=== PATIENT | female | born 1995 ===

== ENCOUNTER 2020-02-15 01:36 | Inpatient (IN) ==
[2020-02-15] MEDS ORDERED: OXYTOCIN 30 UNITS/500 ML BAG IV PRN ×2 (01:55→03:53)
[2020-02-15] MEDS ORDERED: LACTATED RINGER'S 1,000 ML IV PRN (01:55)
[2020-02-15 02:32] LABS: Hematocrit (blood only) 35.9 % (37-47); Hemoglobin 11.6 g/dL (12.0-16.0); Mean Corpuscular Hemoglobin 25.6 pg (25-34); Mean Corpuscular Hgb Conc 32.3 g/dL (32-36); Mean Corpuscular Volume 79.2 fL (80-100); Mean Platelet Volume 11.3 fL (7.4-10.4); Platelet Count 251 K/uL (130-400); RDW Coefficient of Variation 14.2 % (11.5-14.5); RDW Standard Deviation 40.1 fL (36.4-46.3); Red Blood Count 4.53 M/uL (4.2-5.4); White Blood Count 14.34 K/uL (4.8-10.8)
[2020-02-15] MEDS ORDERED: ePHEDrine sulfate 50 MG/ML AMP ONE (02:32)
[2020-02-15] MEDS ORDERED: SODIUM CHLORIDE 0.9% INJ 10 ML VIAL ONE (02:32)
[2020-02-15] MEDS ORDERED: BUPIVACAINE 0.25% 30 ML VIAL ONE (02:32)
[2020-02-15] MEDS ORDERED: fentaNYL citrate 100 MCG/2 ML VIAL ONE (02:33)
[2020-02-15] MEDS ORDERED: fentaNYL 2MCG/ML ROPIVACAINE 1.25MG/ML 100 ML BAG EPI ONE (02:34)
--- NOTE | 2020-02-15 02:36 | History & Physical Report ---
Date of Service February 15, 2020 Assessment & Plan (1) : VSS fetus cat 1 labor - augment PRN, plan to recheck following epidural GBS neg Epidural PRN COVID neg Admission and Anticipated Discharge Date Admission Date: February 15, 2020 History of Present Illness Primary Care Provider: NO PCP 24 y/o G1 at 38 1/7 wga w/ FE 02/28/20 by LMP 05/24 reported c/w US presents w/ c/o ctx increasing in frequency and intensity. +FM and some bloody show, no gross LOF. Normally gets PNC at [facility] in [place], however, was scheduled for job here this weekend. 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 Normal pap in this . No hx STIs PNL (seen on pt's [facility] portal, paper records requested): O+, antibody neg RPR neg HepB SAg neg HepB SAb neg Hep C neg Rubella immune GBS neg GTT 61 TSH 0.82 UCx neg Reported normal anatomy at 20 wks, reportedly had normal growth 01/26 Allergies Allergy/AdvReac Type Severity Reaction Status Date / Time No Known Allergies Allergy Unverified 02/15/20 02:23 Patient History Medical History (Updated 02/15/20 @ 02:34 by Nargis Guzmán MD) Patient denies significant medical history Surgical History (Updated 02/15/20 @ 02:32 by Nargis Guzmán MD) No significant past surgical history Family History (Updated 02/15/20 @ 02:31 by Nargis Guzmán MD) Denies family history of Clotting disorder Social History Smoking Status: Never smoker Second Hand Exposure: No; Do You Dip or Chew Tobacco: No; Tobacco Cessation Education Requested by Patient: No Hx Alcohol Use: No Hx Substance Use: No 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 Beliefs That Will Affect Care: None marital status: Single Current Living Situation: Significant Other Other Information That Helps Us Care for You: No Feels Safe at Home: Yes Safety Concerns: Feels Safe At This Time Assistive Devices: None Physical Exam Constitutional: WD/WN, vitals as above no acute distress Respiratory: normal respiratory effort and + labored breathing (w/ ctx); no respiratory distress Genitourinary: OB Exam Abdomen: + vertex (confirmed by BSUS), + estimated weight (6-7) and + regular contractions (q4min) OB Exam Monitor T racing: + external FHT monitor used, + external uterine monitor used and + category I (145/mod/+accel/-decel) 6/100/0 w/ bulging bag by nursing Results & Data ([facility]) Vital Signs (Past 12 Hours) Vital Signs Temp Pulse Resp BP 02/15/20 01:43 98.2 F 86 20 122/69 Code Status & VTE Plan VTE Prophylaxis Plan VTE Prophylaxis will be ordered: Yes Coding Level of Care Code None Diagnoses Z34.90 CPT Codes Misx Procedure Codes - 63845 NST: 41060 NST ([id number])
[2020-02-15] MEDS ORDERED: LIDOCAINE HCL 1% 20 ML VIAL ONE (03:05)
[2020-02-15 03:21] LABS: Hepatitis B Surface Antigen Neg (Neg); Rubella IgG Antibody Immune (Immune)
--- NOTE | 2020-02-15 03:49 | Delivery Summary ---
Vaginal Delivery Summary Date of Service February 15, 2020 Vaginal Delivery Summary PREOPERATIVE DIAGNOSIS: 1. Single intrauterine at 38 1/7 wga 2. Labor POSTOPERATIVE DIAGNOSIS: 1. Single intrauterine at 38 1/7 wga 2. Labor 3. Delivered PROCEDURE: 1. Normal spontaneous vaginal delivery. SURGEON: Nargis Guzmán MD ANESTHESIA: None ESTIMATED BLOOD LOSS: 200 mL FLUIDS: Continuous LR. URINE OUTPUT: None. COMPLICATIONS: None. CONDITION: Stable. INDICATIONS: 24 y/o G1 at 38 1/7 wga w/ FE 02/28/20 by LMP who presented in active labor at 6cm. GBS negative She continued to progress unaugmented to 10cm. She underwent artificial rupture of membranes and desired to push. FINDINGS: A viable female w/ Apgars of 8 and 9 at 1 and 5 minutes respectively, weight pending SPECIMEN: None. OPERATIVE REPORT: The patient progressed to 10 cm, 100% effaced and +2 station, pushed over intact perineum with anesthesia to deliver a viable female , Apgars as above. Head of delivered in JUJU position. No nuchal cord was present. Body and shoulders were delivered without difficulty. was delivered to maternal abdomen and nursing staff. Delayed cord clamping was performed for 30 seconds. Cord was clamped and cut. Cord blood was obtained. Placenta delivered spontaneously intact with 3-vessel cord. IV oxytocin and fundal massage were given for excellent hemostasis. Vagina, cervix, placenta and perineum were inspected. A first degree laceration and bilateral labial lacerations were noted. First degree repaired using 3-0 vicryl, labial lacerations repaired with 4-0 vicryl. These were excellently hemostatic. Sponge and needle counts correct x2. No sponges were left behind. Mother and stable in immediate period[place] [facility] [place] Vaginal Delivery Codes: 44857 vaginal delivery with post- care
[2020-02-15 03:50] LABS: Hepatitis C IgG 13Yrs+Old_Rflx Neg (Neg)
[2020-02-15] MEDS ORDERED: ACETAMINOPHEN 325 MG TAB PO PRN (03:53)
[2020-02-15] MEDS ORDERED: BENZOCAINE 20% AER SPR 82.5 GM CAN EXT PRN (03:53)
[2020-02-15] MEDS ORDERED: DIPHTHERIA/TETANUS/PERTUSSIS 0.5 ML SYR/VIAL IM ONE (03:53)
[2020-02-15] MEDS ORDERED: IBUPROFEN 600 MG TAB PO PRN (03:53)
[2020-02-15] MEDS ORDERED: HYDROCORTISONE ACETATE 25 MG SUPP PR PRN (03:53)
[2020-02-15] MEDS ORDERED: bisacodyL 10 MG SUPP PR PRN (03:53)
[2020-02-15] MEDS ORDERED: SUPERCREAM 0.870% 15 GM JAR EXT PRN (03:53)
[2020-02-15] MEDS ORDERED: LACTATED RINGER'S 1,000 ML IV SCH (03:53)
[2020-02-15] MEDS: DOCUSATE SODIUM 100 MG CAP PO SCH ×2 (09:05→20:05)
[2020-02-15] MEDS: PRENATAL VITAMIN 1 TAB PO SCH (09:05)
[2020-02-15] MEDS: FERROUS SULFATE 325 MG TAB PO SCH (09:05)
[2020-02-15 13:43] LABS: Appearance Urine Clear (Clear); Bacteria Urine Automated Negative (Negative); Bilirubin Urine Negative (Negative); Blood Urine 3+ (Negative); Color Urine Yellow; Epithelial Cell Urine Auto >30 /lpf (0-5); Glucose Urine UA Negative (Negative); Ketones Urine Trace (Negative); Leukocyte Esterase Urine 1+ (Negative); Nitrite Urine Negative (Negative); Protein Urine Trace (Negative); RBC Urine Automated >30 /hpf (0-4); Specific Gravity Urine 1.018 (1.000-1.030); Urobilinogen Urine Negative (Negative)
[2020-02-16] MEDS: DOCUSATE SODIUM 100 MG CAP PO SCH (08:28)
[2020-02-16] MEDS: PRENATAL VITAMIN 1 TAB PO SCH (08:28)
[2020-02-16] MEDS: FERROUS SULFATE 325 MG TAB PO SCH (08:28)
--- NOTE | 2020-02-16 09:47 | Obstetrical Progress Note ---
Date of Service February 16, 2020 Assessment & Plan (1) Encounter for care and examination after delivery: 24yo G1 day 1 s/p . Doing well. Stable for discharge Subjective Ambulation: ambulating normally Voiding: no voiding problems Passing Gas:: Yes Diet Tolerance:: regular diet Lochia:: Small Physical Exam Constitutional WD/WN, vitals as above Respiratory normal respiratory effort; no respiratory distress and no labored breathing Gastrointestinal (Abdomen) Inspection/Auscultation: abdomen normal to inspection; abdomen not distended Percussion/Palpation: abdomen soft; abdomen nontender, no guarding and abdomen not rigid Genitourinary OB Exam Abdomen: + fundal height Fundus: + firm and + relation to umbilicus (Below); not tender and not boggy Results & Data ([facility]) Vital Signs (Past 12 Hours) Vital Signs Temp Pulse Resp BP Pulse Ox 02/16/20 07:33 36.5 C 81 20 110/74 99 02/15/20 23:20 36.8 C 78 16 124/77 97
[2020-02-16] MEDS ORDERED: bisacodyL 5 MG TABEC PO SCH (20:00)
== END 2020-02-16 11:45 | disposition home or self-care (01) | DRG 807 ==
LOC: OPB 01:36 → 4S1 01:39 → 4S2 07:15